=== PATIENT | female | born 1970 | race Caucasian/White ===

== ENCOUNTER 2018-11-30 12:53 | Emergency (ER) | payer MEDICAID, OTHER ==
[~2018-11-30] VITALS: Ht 152.4 cm; Wt 55.8 kg
[2018-11-30 13:12] VITALS: BP 121/57
--- NOTE | 2018-11-30 13:12 | NUR ---
PT TRIAGED, URINE OBTAINED, SENT TO LOBBY IN STABLE CONDITION.
--- NOTE | 2018-11-30 14:15 | NUR ---
PT AMBULATES TO BED 2
[2018-11-30] MEDS ORDERED: PANTOPRAZOLE 40 MG TABEC PO ONE (14:35)
[2018-11-30] MEDS ORDERED: ALUMINUM HYD/MAG/SIMETHICONE 30 ML UDC PO ONE (14:35)
[2018-11-30] MEDS ORDERED: KETOROLAC 60 MG/2 ML VIAL IM ONE (14:35)
[2018-11-30] MEDS ORDERED: DICYCLOMINE HCL LIQUID 10 MG/5 ML UDC PO ONE (14:35)
[2018-11-30] MEDS ORDERED: LIDOCAINE VISCOUS 2% 20 ML UDC PO ONE (14:35)
--- NOTE | 2018-11-30 14:38 | NUR ---
PT BIB SELF C/O EPIGASTRIC ABD PAIN SINCE THURSDAY 06/21, DENIES NVD. DENIES HISTORY. URINE IS ORANGE TINGED, PT STATES THIS HAPPENS WHEN SHE EATS A CERTAIN FRUIT. . SKIN IS PINK/WARM/DRY; AAOX4 WITH EVEN AND STEADY GAIT; LUNGS CLEAR BL; HR EVEN AND REGULAR; PT DENIES ANY FEVER, CP, SOB, OR COUGH AT THIS TIME; PATIENT STATES PAIN OF 06/21 AT THIS TIME; VSS; PATIENT POSITIONED FOR COMFORT; HOB ELEVATED; BEDRAILS UP X2; BED DOWN. ER MD MADE AWARE OF PT STATUS.
[2018-11-30 15:31] VITALS: BP 121/57
--- NOTE | 2018-11-30 15:32 | NUR ---
Patient discharged with v/s stable. Written and verbal after care instructions given and explained. Patient alert, oriented and verbalized understanding of instructions. Ambulatory with steady gait. All questions addressed prior to discharge. ID band removed. Patient advised to follow up with PMD. Rx of omeprazole given. Patient educated on indication of medication including possible reaction and side effects. Opportunity to ask questions provided and answered.
== END 2018-11-30 15:32 | disposition home or self-care (01) ==
LOC: MED 12:53
DX: K29.70 Gastritis, unspecified, without bleeding (principal)
CPT/HCPCS: 96372; 99284; J1885

== ENCOUNTER 2024-02-01 14:25 | Emergency (ER) | payer OTHER ==
[~2024-02-01] VITALS: Ht 157.5 cm; Wt 65.8 kg
[2024-02-01 14:51] VITALS: BP 143/78; PULSE 73; RESP 18; TEMP 97.6; O2SAT 98
[2024-02-01] MEDS ORDERED: NAPR-337 PO (15:25)
[2024-02-01] MEDS ORDERED: METH-1681 PO (15:25)
[2024-02-01 15:34] VITALS: BP 122/76; PULSE 74; RESP 17; O2SAT 98
[2024-02-01] MEDS: KETOROLAC 30 MG/ML VIAL IM ONE (15:34)
== END 2024-02-01 15:33 | disposition home or self-care (01) ==
LOC: MED 14:25
DX: G44.209 Tension-type headache, unspecified, not intractable (principal); I10 Essential (primary) hypertension; E78.5 Hyperlipidemia, unspecified; Z79.1 Long term (current) use of non-steroidal anti-inflammatories (NSAID); Z79.899 Other long term (current) drug therapy
CPT/HCPCS: 96372; 99283; J1885